=== PATIENT | female | born 1990 | race Caucasian/White ===

== ENCOUNTER 2022-01-07 01:18 | Inpatient (IN) | payer SELFPAY ==
[2022-01-07] MEDS ORDERED: OXYTOCIN DRIP 30,000 MILLIUNITS/500 ML BAG IV ONE ×2 (01:28→02:46)
[2022-01-07] MEDS ORDERED: LACTATED RINGERS 1,000 ML ONE (01:32)
[2022-01-07] MEDS ORDERED: LIDOCAINE (2%) 20 MG/1 ML VIAL 20 ML MDV INFILTRATI ONE (02:13)
[2022-01-07] MEDS ORDERED: miSOPROStol 200 MCG TAB ONE (02:14)
[2022-01-07] MEDS ORDERED: NalbUPHINE 10 MG/1 ML INJ IV ONE (02:20)
[2022-01-07] MEDS ORDERED: LANOLIN/ZINC/DIMETHICONE (LANSINOH) 7 GM TP PRN (03:05)
[2022-01-07] MEDS ORDERED: PROMETHAZINE 25 MG RECT SUPP PR PRN (03:05)
[2022-01-07] MEDS ORDERED: WITCH HAZEL/ GLYCERIN PAD TP PRN (03:05)
[2022-01-07] MEDS ORDERED: diphenhydrAMINE 25 MG CAP PO PRN (03:05)
[2022-01-07] MEDS ORDERED: ACETAMINOPHEN 325 MG TAB PO PRN (03:05)
[2022-01-07] MEDS ORDERED: MAGNESIUM HYDROXIDE (MOM) ORAL LIQD UDC PO PRN (03:05)
[2022-01-07] MEDS ORDERED: HYDROcodone/ACETAMINOPHEN 5-325 MG TAB PO PRN (03:08)
--- NOTE | 2022-01-07 03:20 | History and Physical Report ---
History of Present Illness Date of examination: 01/07/22 Date of admission: 01/07/22 02:12 Chief complaint: Contractions History of present illness: 31 yo EDC 01/01 @ 40 6/ with c/o contractions. Denies ROM or VB. Good FM. Denies any complication with . Pt. Rh negative but declined rhogam. Past History Past Surgical History: no surgical history Family/Genetic History: hypertension Social history: no significant social history - Obstetrical History Expected Date of Delivery: 01/01/22 Actual Gestation: 40 Week(s) 6 Day(s) : 7 Para: 3 Hx # Term Pregnancies: 3 Number of Pregnancies: 0 Spontaneous Abortions: 3 Number of Living Children: 3 Medications and Allergies Allergies Allergy/AdvReac Type Severity Reaction Status Date / Time No Known Allergies Allergy Verified 01/07/22 02:20 Active Meds: Active Medications Acetaminophen (Acetaminophen 325 Mg Tab) 650 mg PO Q4H PRN PRN Reason: Pain MILD(1-3)/Fever >100.5/CADET Stop: 01/09/22 23:59 Hydrocodone Bitart/Acetaminophen (Hydrocodone/Acetaminophen 5-325 Mg Tab) 2 each PO Q6H PRN PRN Reason: Pain, Moderate (4-6) Stop: 01/10/22 23:59 Bisacodyl (Bisacodyl 10 Mg Rect Supp) 10 mg [place] BID PRN PRN Reason: Constipation Diphenhydramine HCl (Diphenhydramine 25 Mg Cap) 25 mg PO Q6H PRN PRN Reason: Itching Magnesium Hydroxide (Magnesium Hydroxide (Mom) Oral Liqd Udc) 30 ml PO HS PRN PRN Reason: Constipation Multi-Ingredient Ointment (Lanolin/Zinc/Dimethicone (Lansinoh) 7 Gm) 1 applic TP PRN PRN PRN Reason: Sore Nipples Promethazine HCl (Promethazine 25 Mg Rect Supp) 25 mg [place] Q6H PRN PRN Reason: Nausea And Vomiting Sodium Chloride (Sodium Chloride 0.9% 10 Ml Flush Syringe) 10 ml IV PRN NR Witch Argelia/Glycerin (Witch Argelia/ Glycerin Pad) 1 each TP PRN PRN PRN Reason: Hemorrhoid/cleansing/soothing Review of Systems Gastrointestinal: abdominal pain - Vital Signs Vital signs: Vital Signs Pulse BP 83 116/68 07/04/22 01:53 01/07/22 01:53 Temp Pulse Resp BP Pulse Ox 81 118/67 97 01/07/22 03:07 01/07/22 02:58 01/07/22 03:07 - Physical Exam Uterus: Positive: enlarged - Obstetrical FHR: category 1 Uterine Contraction Monitor Mode: External Cervical Dilatation: 8 Cervical Effacement Percentage: 100 station: 0 Uterine Contraction Pattern: Irregular Results All other labs normal. Assessment and Plan A IUP @ 40 6/7 weeks Labor Rh negative - decline rhogam P Anticipate
[2022-01-07 03:32] LABS: Hematocrit 24.9 % (30.3-42.9); Hemoglobin 7.7 gm/dl (10.1-14.3)
--- NOTE | 2022-01-07 03:42 | Procedure Note ---
OB Delivery Note - Vaginal Delivery position: OA Intrapartum events: none Delivery induction: none Delivery monitor: external FHT, external uterine Route of delivery: Delivery placenta: spontaneous Delivery cord: 3 umbilical vessels Episiotomy: none Delivery laceration: other (cervical) Delivery repair: vicryl (Posterior cervical laceration repaired with 3-0 vicryl) Delivery comments: Pt. completely dilated and pushing. Thick anterior cervical lip. Pt. pushing spontaneously. Delivery of a live male. Cord clamped and cut. Apgars 8 at 1 minute and 9 at 5 minutes. Infant handed off to the baby nurse. Placenta delivered spontaneously and intact. Uterus firm. Posterior cervical laceration repaired with 3-0 vicryl. Lidocaine was given for local anesthesia. Pt. was also given nubain since she was unable to tolerate the exam. Good hemostasis noted. Pt. tolerated procedure well. Mother and baby in stable condition. - A at 1 minute: 8 at 5 minutes: 9 Infant Gender: Male (weight 9lbs 1 oz 4120 gm)
[2022-01-07] MEDS: IBUPROFEN 600 MG TAB PO SCH ×4 (06:38→22:56)
[2022-01-07 14:19] LABS: Hematocrit 29.8 % (30.3-42.9); Hemoglobin 9.2 gm/dl (10.1-14.3)
[2022-01-08] MEDS: IBUPROFEN 600 MG TAB PO SCH (05:41)
--- NOTE | 2022-01-08 13:56 | Progress Note ---
Assessment and Plan A-S/p PPD #1 Pt. stable P- D/c home F/u in 6 weeks for PP care motrinRx for Subjective Date of service: 01/08/22 Principal diagnosis: Vaginal Delivery Interval history: 31yo G7P s/p vaginal delivery without complication. Pt. with normal lochia. Pain relief by motrin. Pt. desires disharge. Objective - Constitutional Vitals: Vital Signs - 12hr 01/08/22 01/08/22 07:50 08:00 Temperature 97.8 F Pulse Rate 85 Respiratory 18 Rate Blood Pressure 105/54 O2 Sat by Pulse 98 Oximetry O2 Sat by Pulse 97 Oximetry [ Bilateral] General appearance: Present: no acute distress - Gastrointestinal General gastrointestinal: Present: non-distended - Neurologic Neurologic: moves all extremities - Additional findings Additional findings: Uterus -firm, below umbilicus - Labs CBC & Chem 7: 01/07/22 13:14 Labs: Abnormal lab results 01/07/22 Range/Units 13:14 Hgb 9.2 L (10.1-14.3) gm/dl Hct 29.8 L (30.3-42.9) % Medications & Allergies - Medications Allergies/Adverse Reactions: Allergies No Known Allergies Allergy (Verified 01/07/22 02:20) Home Medications: Home Medications Medication Instructions Recorded Confirmed Last Taken Type No Known Home Medications [No 01/07/22 01/07/22 Unknown History Reported Home Medications] Active Medications: Generic Name Dose Route Start Last Admin Trade Name Freq PRN Reason Stop Dose Admin Acetaminophen 650 mg 01/07/22 03:05 Acetaminophen 325 Mg Tab PO 01/09/22 23:59 Q4H PRN Pain MILD(1-3)/Fever >100.5/CADET Hydrocodone Bitart/Acetaminophen 2 each 01/07/22 03:08 Hydrocodone/Acetaminophen 5-325 Mg Tab PO 01/10/22 23:59 Q6H PRN Pain, Moderate (4-6) Bisacodyl 10 mg 01/07/22 03:05 Bisacodyl 10 Mg Rect Supp ID BID PRN Constipation Diphenhydramine HCl 25 mg 01/07/22 03:05 Diphenhydramine 25 Mg Cap PO Q6H PRN Itching Ibuprofen 600 mg 01/07/22 04:00 01/08/22 05:41 Ibuprofen 600 Mg Tab PO 01/11/22 23:59 600 mg Q6H DL Administration Magnesium Hydroxide 30 ml 01/07/22 03:05 Magnesium Hydroxide (Mom) Oral Liqd Udc PO HS PRN Constipation Multi-Ingredient Ointment 1 applic 01/07/22 03:05 Lanolin/Zinc/Dimethicone (Lansinoh) 7 Gm TP PRN PRN Sore Nipples Promethazine HCl 25 mg 01/07/22 03:05 Promethazine 25 Mg Rect Supp ID Q6H PRN Nausea And Vomiting Sodium Chloride 10 ml 01/07/22 04:00 Sodium Chloride 0.9% 10 Ml Flush Syringe IV PRN PRN LINE FLUSH Witch Argelia/Glycerin 1 each 01/07/22 03:05 Witch Argelia/ Glycerin Pad TP PRN PRN Hemorrhoid/cleansing/soothing
[2022-01-08] MEDS ORDERED: IBUPROFEN 600 MG TAB PO PRN (14:05)
--- NOTE | 2022-01-08 14:14 | Discharge Summary ---
Providers - Providers Date of Admission: 01/07/22 02:12 Date of discharge: 01/08/22 Attending physician: Maria C Rojo Primary care physician: [employer] Hospitalization Delivery: Procedure: other (Vaginal Delivery) Episiotomy: none Laceration: other (Cervical laceration) Other procedures: none complications: none Discharge diagnosis: IUP at term delivered Hospital course: Uncomplicated Condition at discharge: Good Disposition: 01 HOME / SELF CARE / HOMELESS - Discharge Diagnoses (1) Vaginal delivery Status: Acute Plan - Provider Discharge Summary Additional instructions: [] Smoking cessation referral if applicable(refer to patient education folder for contact #) [] Refer to [facility] Booklet Call your doctor immediately for: * Fever > 100.5 * Heavy vaginal bleeding ( >1 pad per hour) * Severe persistent headache * Shortness of breath * Reddened, hot, painful area to leg or breast * Drainage or odor from incision. * Keep incision clean and dry at all times and follow doctor's instructions regarding bathing/showering - Follow up plan Follow up: PRIMARY CARE, [Primary Care Provider] - 7 Days Forms: [facility] Discharge Summary
[2022-01-08 15:58] VITALS: BP 111/68
== END 2022-01-08 16:35 | disposition home or self-care (01) | DRG 768 ==
LOC: APU 01:18 → TRG 01:18 → LD 02:12 → OB 04:55
PROVIDERS: ADMIT Obstetrics & Gynecology; ATTEND Obstetrics & Gynecology
PROC: 10E0XZZ Delivery of Products of Conception, External Approach (ICD-10-PCS; principal; 2022-01-07)
PROC: 0UQC7ZZ Repair Cervix, Via Natural or Artificial Opening (ICD-10-PCS; 2022-01-07)
PROC: 3E0234Z Introduction of Serum, Toxoid and Vaccine into Muscle, Percutaneous Approach (ICD-10-PCS; 2022-01-07)
DX: O26.893 Other specified pregnancy related conditions, third trimester (principal); Z37.0 Single live birth; Z20.822 Contact with and (suspected) exposure to COVID-19; O71.3 Obstetric laceration of cervix; Z3A.40 40 weeks gestation of pregnancy; Z67.11 Type A blood, Rh negative
CPT/HCPCS: 36415; 85014; 85018; 85461; 86850; 86900; 86901; 96360; 96361; 96374; 99211; G0378; J3490; G0463; J2300; J2590; J2790; J7120; U0003